=== PATIENT | female | born 1995 | race African-American/Black ===

== ENCOUNTER 2023-03-04 12:30 | Emergency (ER) | payer MEDICAID, SELFPAY ==
[2023-03-04 12:33] VITALS: BP 110/82; PULSE 75; RESP 18; TEMP 36.9; O2SAT 100; BMI 18.6
--- NOTE | 2023-03-04 13:21 | ECG_ITS ---
The [facility] Test Date: 2023-03-04 Pat Name: Heath Medellin Department: Room: - Gender: Female Spect[employer]er: : 1995 Requested By: Order Number: [id number] Reading MD: FIDEL ARROYO Measurements Intervals [place] Rate: 72 P: 69 MT: 172 QRS: 83 QRSD: 92 T: 71 QT: 398 QTc: 422 Interpretive Statements 1100 Sinus rhythm 9110 normal ECG No previous ECG available for comparison Electronically Signed On 03-05-2023 7:16:55 EST by FIDEL ARROYO
[2023-03-04 14:27] LABS: Basophils Percent Auto 0.3 % (0.2-2.0); Eosinophils Absolute Auto 0.1 10^3/uL (0.0-0.7); Eosinophils Percent Auto 0.9 % (0.9-7.0); Hematocrit 35.1 % (36.0-48.0); Hemoglobin 10.9 g/dL (12.0-16.0); Immature Granulocytes Abs Auto 0.02 10^3/uL (0.00-0.03); Immature Granulocytes Pct Auto 0.3 % (0.0-0.5); Lymphocytes Absolute Auto 2.4 10^3/uL (1.2-3.8); Lymphocytes Percent Auto 35.9 % (20.5-60.0); Mean Corpuscular HGB Conc 31.1 g/dL (29.9-35.2); Mean Corpuscular Hemoglobin 28.1 pg (26.7-34.0); Mean Corpuscular Volume 90.5 fL (81.0-99.0); Mean Platelet Volume 9.4 fL (9.5-13.5); Monocytes Absolute Auto 0.6 10^3/uL (0.3-0.8); Monocytes Percent Auto 8.5 % (1.7-12.0); Neutrophils Absolute Auto 3.7 10^3/uL (1.4-6.5); Neutrophils Percent Auto 54.1 % (43.0-75.0); Platelet Count 388 10^3/uL (150-450); Red Blood Count 3.88 10^6/uL (4.20-5.40); Red Cell Distribution Width 16.5 % (11.0-15.0); White Blood Count 6.8 10^3/uL (4.0-11.0)
[2023-03-04 14:29] LABS: Alanine Aminotransferase 31 U/L (14-59); Albumin Globulin Ratio 0.7; Albumin Level 3.1 g/dL (3.4-5.0); Alkaline Phosphatase 52 U/L (46-116); Anion Gap 13.6; Aspartate Amino Transferase 18 U/L (15-37); BUN Creatinine Ratio 23.4; Bilirubin Total 0.1 mg/dL (0.2-1.0); Calcium 8.4 mg/dL (8.5-10.1); Carbon Dioxide 25.1 mmol/L (21.0-32.0); Chloride 103 mmol/L (98-107); Estimated GFR (African America >60 (>=60); Estimated GFR (Non-African Ame >60 (>=60); Globulin 4.3 g/dL; Glucose 80 mg/dL (74-106); Potassium 3.7 mmol/L (3.5-5.1); Sodium 138 mmol/L (136-145); Total Protein 7.4 g/dL (6.4-8.2)
[2023-03-04 14:35] LABS: SARS-CoV-2 Ag NEGATIVE (NEGATIVE)
[2023-03-04 14:48] LABS: HCG Quantitative 16634 mIU/mL
--- NOTE | 2023-03-04 15:38 | ED.NAVMDI1 ---
HPI - Nausea/Vomiting/Diarrhea General Chief complaint: Nausea/Vomiting/Diarrhea Stated complaint: ADOMINAL PAIN Time Seen by Provider: 03/04/23 13:21 Source: patient Mode of arrival: ambulance Limitations: no limitations History of Present Illness HPI Narrative: 28-year-old female presents for nausea and vomiting. LMP was early January. She took a test at home and it was positive. No fever or hematemesis. No vaginal bleeding or lower abdominal pain. Related Data Previous Rx's Medication Instructions Recorded ondansetron 4 mg disintegrating 4 mg PO Q6H PRN nausea and 03/04/23 tablet vomiting #20 tabs Allergies Allergy/AdvReac Type Severity Reaction Status Date / Time No Known Drug Allergies Allergy Verified 03/04/23 12:33 Review of Systems ROS Narrative A ten point review of systems is negative except as noted above. Respiratory Reports: shortness of breath (shortness of breath for the past one or two years) PFSH PFSH Social History Smoking status: Current every day smoker Exam Narrative Exam Narrative: Nurses note and vital signs reviewed and patient is not hypoxic. General: The patient appears well and in no apparent distress. Patient is resting comfortably on cart. Skin: Warm, dry, no pallor noted. There is no rash noted. Head: Normocephalic, atraumatic Eye: Normal conjunctiva, no drainage Ears, Nose, Mouth, and Throat: oral mucosa is moist. Nares patent. Cardiovascular: Regular Rate and Rhythm Respiratory: Patient is in no distress, no accessory muscle use, lungs are clear to auscultation, no wheezing, rales or rhonchi Back: non-tender GI: soft and nontender Musculoskeletal: The patient has no evidence of calf tenderness, no pitting edema, symmetrical pulses noted bilaterally Neurological: A&O, normal speech Psychiatric: Cooperative Constitutional Vital Signs, click to edit/add: Last Vital Signs Temp 98.5 F 03/04/23 12:33 Pulse 75 03/04/23 12:33 Resp 18 03/04/23 12:33 BP 110/82 03/04/23 12:33 Pulse Ox 100 03/04/23 12:33 O2 Del Method Room Air 03/04/23 12:33 Course Vital Signs Vital signs: Vital Signs Temperature 98.5 F 03/04/23 12:33 Pulse Rate 75 03/04/23 12:33 Respiratory Rate 18 03/04/23 12:33 Blood Pressure 110/82 03/04/23 12:33 Pulse Oximetry 100 03/04/23 12:33 Oxygen Delivery Method Room Air 03/04/23 12:33 Temperature 98.5 F 03/04/23 12:33 Pulse Rate 75 03/04/23 12:33 Respiratory Rate 18 03/04/23 12:33 Blood Pressure 110/82 03/04/23 12:33 Pulse Oximetry 100 03/04/23 12:33 Oxygen Delivery Method Room Air 03/04/23 12:33 MDM - Nausea/Vomiting/Diarrhea MDM Narrative Medical decision making narrative: the patient's found to be . She has no vaginal bleeding. I've no clinical suspicion of ectopic and she is able to be discharged. Treatment diagnosis and follow-up were discussed with the patient. Differential Diagnosis Differential diagnosis: Likely gastroenteritis, dehydration and other () Lab Data Attestation: I reviewed the patient's lab results. Labs: Lab Results 03/04/23 03/04/23 03/04/23 Range/Units 13:42 13:43 15:26 WBC 6.8 (4.0-11.0) 10^3/uL RBC 3.88 L (4.20-5.40) 10^6/uL Hgb 10.9 L (12.0-16.0) g/dL Hct 35.1 L (36.0-48.0) % MCV 90.5 (81.0-99.0) fL MCH 28.1 (26.7-34.0) pg MCHC 31.1 (29.9-35.2) g/dL RDW 16.5 H (11.0-15.0) % Plt Count 388 (150-450) 10^3/uL MPV 9.4 L (9.5-13.5) fL Neut % (Auto) 54.1 (43.0-75.0) % Lymph % (Auto) 35.9 (20.5-60.0) % [place] % (Auto) 8.5 (1.7-12.0) % Eos % (Auto) 0.9 (0.9-7.0) % Baso % (Auto) 0.3 (0.2-2.0) % Neut # (Auto) 3.7 (1.4-6.5) 10^3/uL Lymph # (Auto) 2.4 (1.2-3.8) 10^3/uL [place] # (Auto) 0.6 (0.3-0.8) 10^3/uL Eos # (Auto) 0.1 (0.0-0.7) 10^3/uL Baso # (Auto) 0.0 (0.0-0.1) 10^3/uL Abs Immat Gran (auto) 0.02 (0.00-0.03) 10^3/uL Imm/Tot Granulo (auto) 0.3 (0.0-0.5) % Sodium 138 (136-145) mmol/L Potassium 3.7 (3.5-5.1) mmol/L Chloride 103 (98-107) mmol/L Carbon Dioxide 25.1 (21.0-32.0) mmol/L Anion Gap 13.6 BUN 15.0 (7.0-18.0) mg/dL Creatinine 0.64 (0.55-1.02) mg/dL Est GFR ( Amer) >60 (>=60) Est GFR (Non-Af Amer) >60 (>=60) BUN/Creatinine Ratio 23.4 Glucose 80 (74-106) mg/dL Calcium 8.4 L (8.5-10.1) mg/dL Total Bilirubin 0.1 L (0.2-1.0) mg/dL AST 18 (15-37) U/L ALT 31 (14-59) U/L Alkaline Phosphatase 52 (46-116) U/L Total Protein 7.4 (6.4-8.2) g/dL Albumin 3.1 L (3.4-5.0) g/dL Globulin 4.3 g/dL Albumin/Globulin Ratio 0.7 Lipase 45.0 (16.0-77.0) U/L HCG, Quant 12066 mIU/mL Urine Color Lt. yellow (YELLOW) Urine Clarity Clear (CLEAR) Urine pH 6.0 (5.0-9.0) Ur Specific [place] 1.010 (1.005-1.025) Urine Protein Negative (NEG/TRACE) mg/dL Urine Glucose (UA) Negative (NEGATIVE) mg/dL Urine Ketones Negative (NEGATIVE) mg/dL Urine Occult Blood Negative (NEGATIVE) Urine Nitrite Negative (NEGATIVE) Urine Bilirubin Negative (NEGATIVE) Urine Urobilinogen 0.2 (0.2-1.0) EU/dL Ur Leukocyte Esterase Negative (NEGATIVE) SARS-CoV-2 (PCR) Negative (NEGATIVE) Discharge Plan Discharge Chief Complaint: Nausea/Vomiting/Diarrhea Clinical Impression: Patient Disposition: Home, Self-Care Time of Disposition Decision: 16:18 Condition: Good Mode of Transportation: Private Vehicle Prescriptions / Home Meds: New ondansetron 4 mg tablet,disintegrating 4 mg PO Q6H PRN (Reason: nausea and vomiting) Qty: 20 0RF Instructions: (ED) Additional Instructions: Follow-up with nuclear reactor operator of your choice Stand Alone Forms: Portal Instructions Referrals: Physician,Non-Staff, MD [Primary Care Provider] - 1 week
[2023-03-04 15:41] LABS: Bilirubin Urine NEGATIVE (NEGATIVE); Blood Urine NEGATIVE (NEGATIVE); Clarity Urine CLEAR (CLEAR); Color Urine LT. YELLOW (YELLOW); Glucose Urine UA NEGATIVE (NEGATIVE); Ketones Urine NEGATIVE (NEGATIVE); Leukocyte Esterase Urine NEGATIVE (NEGATIVE); Nitrite Urine NEGATIVE (NEGATIVE); Protein Urine NEGATIVE (NEG/TRACE); Urobilinogen Urine 0.2 EU/dL (0.2-1.0)
[2023-03-04] MEDS: 0.9 % SODIUM CHLORIDE 1,000 ML 1000 ML IV (15:43)
[2023-03-04] MEDS: ONDANSETRON PF 4 MG/2 ML VIAL IV (15:43)
[2023-03-04 15:44] LABS: Urine Microscopic Indicated NO
[2023-03-05 11:28] LABS: SARS-CoV-2 NAA NOT DETECTED (NOT DETECTE)
== END 2023-03-04 16:53 | disposition home or self-care (01) ==
PROVIDERS: Physician Assistant; Emergency Provider Emergency Medicine
DX: O26.891 Other specified pregnancy related conditions, first trimester (principal); R11.2 Nausea with vomiting, unspecified; O99.331 Smoking (tobacco) complicating pregnancy, first trimester; F17.210 Nicotine dependence, cigarettes, uncomplicated; Z3A.01 Less than 8 weeks gestation of pregnancy; Z20.822 Contact with and (suspected) exposure to COVID-19
CPT/HCPCS: 36415; 80053; 81003; 83690; 84702; 85025; 87635; 87811; 93005; 96374; 99285

== ENCOUNTER 2023-06-19 13:12 | Outpatient (OUT) | payer MEDICAID, SELFPAY ==
--- NOTE | 2023-06-19 13:16 | US_ITS ---
The [address] [address] Patient Name: CARLOS MANUEL ARIZA MRN: [id number] date: 1995 Sex: F Assigned Patient Location: [facility] Current Patient Location: [facility] Accession/Order Number: [id number] Exam Date: 06/19/2023 13:18 Report Date: 06/19/2023 14:05 At the request of: IERNA NOEL Procedure: US OB >= 14 weeks Fetus EXAMINATION: US OB >= 14 weeks Fetus HISTORY: Missed menses COMPARISON: No relevant comparison available. FINDINGS: Heart Rate: 149.0 bpm Number: 1.0 Position: BREECH Amniotic Fluid Volume: Subjectively normal BIOMETRY: BPD: 4.9 cm cm; 20 weeks 6 days HC: 18.9 cmcm; 21 weeks 1 days AC: 15.0 cm cm; 20 weeks 2 days FL: 3.5 cm cm; 21 weeks 0 days EFW: 367.6 grams; 21% FL/AC: 23.2 FL/BPD: 70.7 HC/AC: 1.3 GESTATIONAL AGE: Age by EDC: 20 weeks 1 day SVEN by EDC: 10/29/2023 Age by US: 20 weeks 6 days SVEN by US: 10/31/2023 US/US OB >= 14 weeks Fetus IMPRESSION: 1. Single live intrauterine 20 weeks 6 days by today's ultrasound. 2. Anatomic evaluation was not performed on today's dating ultrasound study. Electronically authenticated by: AGUSTO PENA Date: 06/19/2023 14:05
--- OUTSIDE RECORDS SUMMARY | 2023-06-19 13:32 | XMS_ITS | CCD ---
Author Name Unknown Address [address] [place] [address] Organization [facility] Care Team Providers Care Superintendent Production Name Role Phone Unavailable, Family Physician Unavailable Un available Unavailable, Family Physician Unavailable Un available [place], [place] Unavailable Unavaila светлана MARCOS, DR OSBORN Admitting Unavailable SADIE, DR OSBORN Attending Unavailable KEYONNA, DR GONZALEZ Consulting Unavailable REQUEST, NONE LISTED Primary Care Unavaila светлана MARCOS, DR OSBORN Procedure Practitioner Unavailab jazmín MARCOS, DR OSBORN Consulting Unavailable REQUEST, NONE LISTED Primary Care Unavaila светлана BLAKE, DR JACK Gregg Admitting Unavailabl matthew BLAKE, DR JACK Gregg Attending Unavailabl e YUMIKO RASHID Consulting Unavailable No Pcp, No Pcp Primary Care Provider Unavailabl e Problems Active Problems Problem Classification Problem Date Documented Date Episodic/Chronic Genitourinary symptoms and ill-defined conditions (1 source) Personal history of urinary (tract) infections; Translations: [PERS HX URINARY TRACT INFECTIONS] Onset: 04-19-2022 Episodic Other aftercare (1 source) Other technical services specialist (current) drug therapy; 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] Onset: 04-22-2022 Episodic Other complications of ; puerperium affecting management of mother (1 source) Urinary tract infection following delivery, unspecified; Translations: [UTI FOLLOWING DELIVERY UNSPECIFIED] Onset: 04-22-2022 Episodic Other complications of ; puerperium affecting management of mother (1 source) Other infections with a predominantly sexual mode of transmission complicating the puerperium; Translations: [OTH INF SEXL TRNSMS COMP PUERPERIUM] Onset: 04-22-2022 Episodic Other complications of ; puerperium affecting management of mother (1 source) Smoking (tobacco) complicating childbirth; Translations: [SMOKING TOBACCO COMP CHILDBIRTH] Onset: 04-19-2022 Episodic Other complications of (2 sources) Smoking (tobacco) complicating , third trimester; Translations: [SMOKING TOBACCO COMP PREG 3RD TRI] Onset: 03-28-2022 Episodic Other female genital disorders (3 sources) Other specified noninflammatory disorders of vagina; Translations: [OTH SPEC NONINFLAMMATORY D/O VAGINA] Onset: 04-18-2022 Episodic Other infections; including parasitic (1 source) Trichomonal vulvovaginitis; Translations: [TRICHOMONAL VULVOVAGINITIS] Onset: 04-22-2022 Episodic Other and delivery including normal (1 source) Single live ; Translations: [SINGLE LIVE ] Onset: 04-19-2022 Episodic Residual codes; unclassified (1 source) 37 weeks gestation of ; Translations: [37 WEEKS GESTATION OF ] Onset: 04-19-2022 Episodic Substance-related disorders (1 source) Nicotine dependence, cigarettes, uncomplicated; Translations: [NICOTINE DEPEND CIGARETTES UNCOMP] Onset: 04-19-2022 Chronic Substance-related disorders (2 sources) Drug use complicating childbirth; Translations: [Cocaine use, unspecified, uncomplicated] Onset: 04-19-2022 Episodic Urinary tract infections (1 source) Urinary tract infection, site not specified; Translations: [UTI SITE NOT SPECIFIED] Onset: 04-22-2022 Episodic Past or Other Problems Problem Classification Problem Date Documented Da te Episodic/Chronic Viral infection (1 source) Herpes simplex; Translations: [Herpesviral infection, unspecified] Onset: 11-21-2016 11-21-2016 Episodic Results Test Name Value Interpretation Reference Range Facility CHLAMYDIA/GONOCOCCUS AMY (SW AB/URINE/PAPon 04-21-2022 Chlamydia trachomatis, AMY Negative Normal Negative [facility] Comment on above: Performed By: #### C T/NGNA #### [facility] [address] [place] [address] Dr. Bessie Pelaez Neisseria gonorrhoeae, AMY Negative Normal Negative [facility] Comment on above: Performed By: #### C T/NGNA #### [facility] [address] [place] [address] Dr. Bessie Pelaez CBC AUTO DIFFon 04-18-2022 BASO # 0.0 103/ul Normal 0.0-0.1 [facility] Comment on above: Performed By: #### H GBCAS #### [facility] [address] [address] [address] Bessie Pelaez Basophils/100 WBC (Bld) 0.3 % Normal 0.2-2.0 [facility] Comment on above: Performed By: #### H GBCAS #### [facility] [address] [address] [address] Bessie Pelaez EO # 0.1 103/ul Normal 0.0-0.7 [facility] Comment on above: Performed By: #### H GBCAS #### [facility] [address] [place] [address] Dr. Bessie Pelaez Eosinophils/100 WBC (Bld) 1.9 % Normal 0.9-7.0 [facility] Comment on above: Performed By: #### H GBCAS #### [facility] [address] [place] [address] Dr. Bessie Pelaez Erythrocyte distribution width (RBC) [Ratio] 17.2 % Critically high 11.0-15.0 [facility] Comment on above: Performed By: #### H GBCAS #### [facility] [address] [place] [address] Dr. Bessie Pelaez Hematocrit (Bld) [Volume fraction] 32.7 % Critically low 36.0-48.0 [facility] Comment on above: Performed By: #### H GBCAS #### [facility] [address] [place] [address] Dr. Bessie Pelaez Hemoglobin (Bld) [Mass/Vol] 9.5 g/dL Critically low 12.0-16.0 [facility] Comment on above: Performed By: #### H GBCAS #### [facility] [address] [place] [address] Dr. Bessie Pelaez IG # 0.02 10e3/ul Normal 0.00-0.03 [facility] Comment on above: Performed By: #### H GBCAS #### [facility] [address] [address] [address] Bessie Pelaez IG % 0.3 % Normal 0.0-0.5 [facility] Comment on above: Performed By: #### H GBCAS #### [facility] [address] [address] [address] Bessie Pelaez LYMPH # 3.0 103/ul Normal 1.2-3.8 [facility] Comment on above: Performed By: #### H GBCAS #### [facility] [address] [address] [address] Bessie Pelaez Lymphocytes/100 WBC (Bld) 50.8 % Normal 20.5-60.0 [facility] Comment on above: Performed By: #### H GBCAS #### [facility] [address] [address] [address] Bessie Pelaez MANUAL DIFF REQ NO Normal [facility] Comment on above: Performed By: #### H GBCAS #### [facility] [address] [address] [address] Bessie Pelaez MCH (RBC) [Entitic mass] 27.5 pg Normal 26.7-34.0 [facility] Comment on above: Performed By: #### H GBCAS #### [facility] [address] [address] [address] Bessie Pelaez MCHC (RBC) [Mass/Vol] 29.1 g/dL Critically low 29.9-35.2 [facility] Comment on above: Performed By: #### H GBCAS #### [facility] [address] [address] [address] Bessie Pelaez MCV (RBC) [Entitic vol] 94.8 fL Normal 81.0-99.0 [facility] Comment on above: Performed By: #### H GBCAS #### [facility] [address] [address] [address] Bessie Pelaez MONO # 0.6 103/ul Normal 0.3-0.8 [facility] Comment on above: Performed By: #### H GBCAS #### [facility] [address] [address] [address] Bessie Pelaez Monocytes/100 WBC (Bld) 11.0 % Normal 1.7-12.0 [facility] Comment on above: Performed By: #### H GBCAS #### [facility] [address] [address] [address] Bessie Pelaez NEUT # 2.1 103/ul Normal 1.4-6.5 [facility] Comment on above: Performed By: #### H GBCAS #### [facility] [address] [address] [address] Bessie Pelaez Neutrophils/100 WBC (Bld) 35.7 % Critically low 43.0-75.0 [facility] Comment on above: Performed By: #### H GBCAS #### [facility] [address] [place] [address] Dr. Bessie Pelaez Platelet mean volume (Bld) [Entitic vol] 9.9 fL Normal 9.5-13.5 [facility] Comment on above: Performed By: #### H GBCAS #### [facility] [address] [address] [address] Bessie Pelaez PLT 438 103/ul Normal 150-450 [facility] Comment on above: Performed By: #### H GBCAS #### [facility] [address] [place] [address] Dr. Bessie Pelaez RBC 3.45 106/ul Critically low 4.20-5.40 [facility] Comment on above: Performed By: #### H GBCAS #### [facility] [address] [address] [address] Bessie Pelaez WBC 5.8 103/ul Normal 4.0-11.0 [facility] Comment on above: Performed By: #### H GBCAS #### [facility] [address] [place] [address] Dr. Bessie Pelaez CULTURE URINEon 04-18-2022 CULTURE URINE Culture Observations: NO GROWTH. Normal [facility] Comment on above: Performed By: #### H GBCAS #### [facility] [address] [place] [address] Dr. Bessie Pelaez ER URINE PROFILEon 3 Bilirubin Ql (U) Negative Normal NEGATIVE [facility] Comment on above: Performed By: #### Matthew SCHAFFER UMICRO #### [facility] [address] [place] [address] Dr. Bessie Pelaez Clarity (U) CLEAR Normal CLEAR [facility] Comment on above: Performed By: #### Matthew SCHAFFER UMICRO #### [facility] [address] [place] [address] Dr. Bessie Pelaez Color (U) LT. YELLOW Normal YELLOW [facility] Comment on above: Performed By: #### LINDA MCGEEICRO #### [facility] [address] [place] [address] Dr. Bessie RODRIGUEZ A micrscopic examination will be performed if indicated. Normal [facility] Comment on above: Performed By: #### LINDA MCGEEICRO #### [facility] [address] [place] [address] Dr. Bessie Pelaez Glucose Ql (U) Negative Normal NEGATIVE [facility] Comment on above: Performed By: #### LINDA MCGEEICRO #### [facility] [address] [place] [address] Dr. Bessie Pelaez Hemoglobin Ql (U) Negative Normal NEGATIVE [facility] Comment on above: Performed By: #### LINDA MCGEEICRO #### [facility] [address] [place] [address] Dr. Bessie Pelaez Ketones Ql (U) TRACE Abnormal NEGATIVE [facility] Comment on above: Performed By: #### LINDA MCGEEICRO #### [facility] [address] [place] [address] Dr. Bessie Pelaez LEUKOCYTES SMALL Abnormal NEGATIVE [facility] Comment on above: Performed By: #### Matthew SCHAFFER UMICRO #### [facility] [address] [place] [address] Dr. Bessie Pelaez Nitrite Ql (U) Negative Normal NEGATIVE [facility] Comment on above: Performed By: #### Matthew SCHAFFER, UMICRO #### [facility] [address] [place] [address] Dr. Bessie Pelaez pH (U) 6.5 [pH] Normal 5-9 [facility] Comment on above: Performed By: #### Matthew SCHAFFER, UMICRO #### [facility] [address] [place] [address] Dr. Bessie Pelaez SPEC GRAVITY 1.015 Normal 1.005-<=1.025 [facility] Comment on above: Performed By: #### Matthew SCHAFFER, UMICRO #### [facility] [address] [place] [address] Dr. Bessie Pelaez UA PROTEIN Negative Normal NEGATIVE/ TRACE [facility] Comment on above: Performed By: #### Matthew SCHAFFER, UMICRO #### [facility] [address] [place] [address] Dr. Bessie Pelaez UR MICRO IND INDICATED Normal [facility] Comment on above: Performed By: #### Matthew SCHAFFER, UMICRO #### [facility] [address] [place] [address] Dr. Bessie Pelaez Urobilinogen Qn (U) 1.0 {Kristine'U}/dL Normal 0.2 - 1. 0 [facility] Comment on above: Performed By: #### Matthew SCHAFFER, UMICRO #### [facility] [address] [place] [address] Dr. Bessie Pelaez URINE MICROSCOPIC ONLYon BACTERIA TRACE Abnormal NONE SEEN [facility] Comment on above: Performed By: #### Matthew SCHAFFER, UMICRO #### [facility] [address] [place] [address] Dr. Bessie Pelaez Bacteria identified Cx Nom (U) INDICATED Normal [facility] Comment on above: Performed By: #### Matthew SCHAFFER, UMICRO #### [facility] [address] [place] [address] Dr. Bessie Pelaez CAST NONE SEEN Normal NONE SEEN [facility] Comment on above: Performed By: #### E RUR, UMICRO #### [facility] [address] [place] [address] Dr. Bessie Pelaez Crystals LM Nom (Urine sed) NONE SEEN Normal NONE SEEN [facility] Comment on above: Performed By: #### Matthew SCHAFFER UMICRO #### [facility] [address] [place] [address] Dr. Bessie Pelaez Epithelial cells LM Ql (Urine sed) RARE Normal NONE SEEN /RARE [facility] Comment on above: Performed By: #### Matthew SCHAFFER UMICRO #### [facility] [address] [place] [address] Dr. Bessie Pelaez MUCOUS NONE SEEN Normal NONE SEEN [facility] Comment on above: Performed By: #### Matthew SCHAFFER ICRO #### [facility] [address] [place] [address] Dr. Bessie Pelaez RBC 0-2 Normal 0-2 [facility] Comment on above: Performed By: #### Matthew SCHAFFER ICRO #### [facility] [address] [place] [address] Dr. Bessie Pelaez TRICH SEEN Abnormal NONE SEEN [facility] Comment on above: Performed By: #### Matthew SCHAFFER ICRO #### [facility] [address] [place] [address] Dr. Bessie Pelaez WBC 2-5 Abnormal NONE SEEN [facility] Comment on above: Performed By: #### Matthew SCHAFFER ICRO #### [facility] [address] [place] [address] Dr. Bessie Pelaez WET PREPon 04-18-2022 CLUE CELLS NONE SEEN Normal NONE SEEN [facility] Comment on above: Performed By: #### W P #### [facility] [address] [place] [address] Dr. Bessie Pelaez FUNGAL ELEMENTS NONE SEEN Normal NONE SEEN [facility] Comment on above: Performed By: #### W P #### [facility] [address] [place] [address] Dr. Bessie Pelaez RBC -WET PREP RARE Abnormal NONE SEEN [facility] Comment on above: Performed By: #### W P #### [facility] [address] [place] [address] Dr. Bessie Pelaez TRICHOMONAS SEEN Abnormal NONE SEEN [facility] Comment on above: Performed By: #### W P #### [facility] [address] [place] [address] Dr. Bessie Pelaez WBC- WET PREP MODERATE Abnormal NONE SEEN [facility] Comment on above: Performed By: #### W P #### [facility] [address] [place] [address] Dr. Bessie Pelaez WET PREP BACTERIA FEW Abnormal NONE SEEN [facility] Comment on above: Performed By: #### W P #### [facility] [address] [place] [address] Dr. Bessie Pelaez COCAINE METABOLITE CONFIRMAT ION, URINEon 04-06-2022 BENZOYLECGNONINE GCMS 7950 ng/mL Normal Djkshj=892 [facility] Comment on above: Performed By: #### H GBCAS #### [facility] [address] [place] [address] Dr. Bessie Pelaez COCAINE METAB Positive Abnormal [facility] Comment on above: Performed By: #### H GBCAS #### [facility] [address] [place] [address] Dr. Bessie Pelaez CBC AUTO DIFFon 03-29-2022 BASO # 0.0 103/ul Normal 0.0-0.1 [facility] Comment on above: Performed By: #### H GBCAS #### [facility] [address] [place] [address] Dr. Bessie Pelaez Basophils/100 WBC (Bld) 0.3 % Normal 0.2-2.0 [facility] Comment on above: Performed By: #### H GBCAS #### [facility] [address] [place] [address] Dr. Bessie Pelaez EO # 0.1 103/ul Normal 0.0-0.7 [facility] Comment on above: Performed By: #### H GBCAS #### [facility] [address] [place] [address] Dr. Bessie Pelaez Eosinophils/100 WBC (Bld) 0.7 % Critically low 0.9-7.0 [facility] Comment on above: Performed By: #### H GBCAS #### [facility] [address] [address] [address] Bessie Pelaez Erythrocyte distribution width (RBC) [Ratio] 13.9 % Normal 11.0-15.0 [facility] Comment on above: Performed By: #### H GBCAS #### [facility] [address] [place] [address] Dr. Bessie Pelaez Hematocrit (Bld) [Volume fraction] 25.8 % Critically low 36.0-48.0 [facility] Comment on above: Performed By: #### H GBCAS #### [facility] [address] [place] [address] Dr. Bessie Pelaez Hemoglobin (Bld) [Mass/Vol] 8.6 g/dL Critically low 12.0-16.0 [facility] Comment on above: Performed By: #### H GBCAS #### [facility] [address] [place] [address] Dr. Bessie Pelaez IG # 0.14 10e3/ul Critically high 0.00-0.03 [facility] Comment on above: Performed By: #### H GBCAS #### [facility] [address] [place] [address] Dr. Bessie Pelaez IG % 1.3 % Critically high 0.0-0.5 [facility] Comment on above: Performed By: #### H GBCAS #### [facility] [address] [address] [address] Bessie Pelaez LYMPH # 3.2 103/ul Normal 1.2-3.8 [facility] Comment on above: Performed By: #### H GBCAS #### [facility] [address] [place] [address] Dr. Bessie Pelaez Lymphocytes/100 WBC (Bld) 28.4 % Normal 20.5-60.0 [facility] Comment on above: Performed By: #### H GBCAS #### [facility] [address] [address] [address] Bessie Pelaez MANUAL DIFF REQ NO Normal [facility] Comment on above: Performed By: #### H GBCAS #### [facility] [address] [place] [address] Dr. Bessie Pelaez MCH (RBC) [Entitic mass] 28.8 pg Normal 26.7-34.0 [facility] Comment on above: Performed By: #### H GBCAS #### [facility] [address] [place] [address] Dr. Bessie Pelaez MCHC (RBC) [Mass/Vol] 33.3 g/dL Normal 29.9-35.2 [facility] Comment on above: Performed By: #### H GBCAS #### [facility] [address] [place] [address] Dr. Bessie Pelaez MCV (RBC) [Entitic vol] 86.3 fL Normal 81.0-99.0 [facility] Comment on above: Performed By: #### H GBCAS #### [facility] [address] [place] [address] Dr. Bessie Pelaez MONO # 1.0 103/ul Critically high 0.3-0.8 [facility] Comment on above: Performed By: #### H GBCAS #### [facility] [address] [place] [address] Dr. Bessie Pelaez Monocytes/100 WBC (Bld) 8.6 % Normal 1.7-12.0 [facility] Comment on above: Performed By: #### H GBCAS #### [facility] [address] [place] [address] Dr. Bessie Pelaez NEUT # 6.8 103/ul Critically high 1.4-6.5 [facility] Comment on above: Performed By: #### H GBCAS #### [facility] [address] [place] [address] Dr. Bessie Pelaez Neutrophils/100 WBC (Bld) 60.7 % Normal 43.0-75.0 [facility] Comment on above: Performed By: #### H GBCAS #### [facility] [address] [address] [address] Bessie Pelaez Platelet mean volume (Bld) [Entitic vol] 10.2 fL Normal 9.5-13.5 [facility] Comment on above: Performed By: #### H GBCAS #### [facility] [address] [address] [address] Bessie Pelaez PLT 263 103/ul Normal 150-450 [facility] Comment on above: Performed By: #### H GBCAS #### [facility] [address] [address] [address] Bessie Pelaez RBC 2.99 106/ul Critically low 4.20-5.40 [facility] Comment on above: Performed By: #### H GBCAS #### [facility] [address] [place] [address] Dr. Bessie Pelaez WBC 11.2 103/ul Critically high 4.0-11.0 [facility] Comment on above: Performed By: #### H GBCAS #### [facility] [address] [place] [address] Dr. Bessie Pelaez HEMOGLOBINOPATHY FRACTIONATI ON CASCADE03-29-2022 HGB A 97.8 % Normal 96.4-98.8 [facility] Comment on above: Performed By: #### H GBCAS #### [facility] [address] [address] [address] Bessie Pelaez HGB A2 2.2 % Normal 1.8-3.2 [facility] Comment on above: Performed By: #### H GBCAS #### [facility] [address] [address] [address] Bessie Pelaez HGB F 0.0 % Normal 0.0-2.0 [facility] Comment on above: Performed By: #### H GBCAS #### [facility] [address] [address] [address] Bessie Pelaez HGB S 0.0 % Normal 0.0 [facility] Comment on above: Performed By: #### H GBCAS #### [facility] [address] [address] [address] Bessie Pelaez Interpretation: Comment Normal [facility] Comment on above: Result Comment: Norm al hemoglobin present; no hemoglobin variant or beta thalassemia identified. Note: Alpha thalassemia may not be detected by the Hgb Fractionation [place] panel. If alpha thalassemia is suspected, [facility] offers Alpha-Thalassemia DNA Analysis (#[id number]). Performed By: #### H GBCAS #### [facility] [address] [address] [address] Bessie Pelaez HEP B SURFACE ANTIGEN SCREEN on 03-29-2022 HBsAg Screen Negative Normal Negative [facility] Comment on above: Performed By: #### H GBCAS #### [facility] [address] [place] [address] Dr. Bessie Pelaez HEPATITIS C ANTIBODYon 03-29 Hep C Virus Ab <0.1 Normal 0.0-0.9 [facility] Comment on above: Result Comment: Nega tive: < 0.8 Indeterminate: 0.8 - 0.9 Positive: > 0.9 . HCV antibody alone does not differentiate between previous resolved infection and active infection. The CDC and current clinical guidelines recommend that a positive HCV antibody result be followed up with an HCV RNA test to support the diagnosis of acute HCV infection. [facility] offers Hepatitis C Virus (HCV) RNA, Diagnosis, AMY (983553) and Hepatitis C Virus (HCV) Antibody with reflex to Quantitative Real-time PCR ([id number]). Performed By: #### H CV #### [facility] [address] [place] [address] Dr. Bessie Pelaez HIV 1 AND 2 WITH REFLEXon HIV Screen 4th Generation wRfx Non-Reactive Normal Non Reactive [facility] Comment on above: Result Comment: HIV Negative HIV-1/HIV-2 antibodies and HIV-1 p24 antigen were NOT detected. There is no laboratory evidence of HIV infection. Performed By: #### H IV12 #### [facility] [address] [place] [address] Dr. Bessie Pelaez RPR QUANTon 03-29-2022 Rapid Plasma Reagin, Quant Non-Reactive Normal NonRea<1:1 [facility] Comment on above: Result Comment: Plethor se Note: This test does not meet current guidelines for screening and diagnosis of syphilis. This test is intended for following treatment response in patients being treated for syphilis infection. To screen for syphilis infection, a reflex cascade that includes both RPR and a treponema-specific assay should be utilized, such as Treponema pallidum (Syphilis) Screening [place] (194739) or Rapid Plasma Reagin (RPR) Test With Reflex to Quantitative RPR and Confirmatory Treponema pallidum Antibodies ([id number]). Performed By: #### R PRQ #### [facility] [address] [place] [address] Dr. Bessie Pelaez RUBELLA AB IGGon 03-29-2022 Rubella Antibodies, IgG <0.90 Critically low Immune >0.99 [facility] Comment on above: Result Comment: Non- immune <0.90 Equivocal 0.90 - 0.99 Immune >0.99 Performed By: #### H GBCAS #### [facility] [address] [place] [address] Dr. Bessie Pelaez CBC AUTO DIFFon 03-28-2022 BASO # 0.0 103/ul Normal 0.0-0.1 [facility] Comment on above: Performed By: #### H GBCAS #### [facility] [address] [place] [address] Dr. Bessie Pelaez Basophils/100 WBC (Bld) 0.3 % Normal 0.2-2.0 [facility] Comment on above: Performed By: #### H GBCAS #### [facility] [address] [place] [address] Dr. Bessie Pelaez EO # 0.1 103/ul Normal 0.0-0.7 [facility] Comment on above: Performed By: #### H GBCAS #### [facility] [address] [place] [address] Dr. Bessie Pelaez Eosinophils/100 WBC (Bld) 0.7 % Critically low 0.9-7.0 [facility] Comment on above: Performed By: #### H GBCAS #### [facility] [address] [address] [address] Bessie Pelaez Erythrocyte distribution width (RBC) [Ratio] 14.3 % Normal 11.0-15.0 [facility] Comment on above: Performed By: #### H GBCAS #### [facility] [address] [place] [address] Dr. Bessie Pelaez Hematocrit (Bld) [Volume fraction] 30.0 % Critically low 36.0-48.0 [facility] Comment on above: Performed By: #### H GBCAS #### [facility] [address] [place] [address] Dr. Bessie Pelaez Hemoglobin (Bld) [Mass/Vol] 9.6 g/dL Critically low 12.0-16.0 [facility] Comment on above: Performed By: #### H GBCAS #### [facility] [address] [place] [address] Dr. Bessie Pelaez IG # 0.13 10e3/ul Critically high 0.00-0.03 [facility] Comment on above: Performed By: #### H GBCAS #### [facility] [address] [place] [address] Dr. Bessie Pelaez IG % 1.5 % Critically high 0.0-0.5 [facility] Comment on above: Performed By: #### H GBCAS #### [facility] [address] [place] [address] Dr. Bessie Pelaez LYMPH # 2.2 103/ul Normal 1.2-3.8 [facility] Comment on above: Performed By: #### H GBCAS #### [facility] [address] [place] [address] Dr. Bessie Pelaez Lymphocytes/100 WBC (Bld) 25.1 % Normal 20.5-60.0 [facility] Comment on above: Performed By: #### H GBCAS #### [facility] [address] [place] [address] Dr. Bessie Pelaez MANUAL DIFF REQ NO Normal [facility] Comment on above: Performed By: #### H GBCAS #### [facility] [address] [address] [address] Bessie Pelaez MCH (RBC) [Entitic mass] 28.5 pg Normal 26.7-34.0 [facility] Comment on above: Performed By: #### H GBCAS #### [facility] [address] [address] [address] Bessie Pelaez MCHC (RBC) [Mass/Vol] 32.0 g/dL Normal 29.9-35.2 [facility] Comment on above: Performed By: #### H GBCAS #### [facility] [address] [address] [address] Bessie Pelaez MCV (RBC) [Entitic vol] 89.0 fL Normal 81.0-99.0 [facility] Comment on above: Performed By: #### H GBCAS #### [facility] [address] [place] [address] Dr. Bessie Pelaez MONO # 0.8 103/ul Normal 0.3-0.8 [facility] Comment on above: Performed By: #### H GBCAS #### [facility] [address] [place] [address] Dr. Bessie Pelaez Monocytes/100 WBC (Bld) 9.3 % Normal 1.7-12.0 [facility] Comment on above: Performed By: #### H GBCAS #### [facility] [address] [place] [address] Dr. Bessie Pelaez NEUT # 5.4 103/ul Normal 1.4-6.5 [facility] Comment on above: Performed By: #### H GBCAS #### [facility] [address] [address] [address] Bessie Pelaez Neutrophils/100 WBC (Bld) 63.1 % Normal 43.0-75.0 [facility] Comment on above: Performed By: #### H GBCAS #### [facility] [address] [place] [address] Dr. Bessie Pelaez Platelet mean volume (Bld) [Entitic vol] 10.5 fL Normal 9.5-13.5 [facility] Comment on above: Performed By: #### H GBCAS #### [facility] [address] [address] [address] Bessie Pelaez PLT 281 103/ul Normal 150-450 [facility] Comment on above: Performed By: #### H GBCAS #### [facility] [address] [address] [address] Bessie Pelaez RBC 3.37 106/ul Critically low 4.20-5.40 [facility] Comment on above: Performed By: #### H GBCAS #### [facility] [address] [address] [address] Bessie Pelaez WBC 8.6 103/ul Normal 4.0-11.0 [facility] Comment on above: Performed By: #### H GBCAS #### [facility] [address] [place] [address] Dr. Bessie Pelaez Covid-19 PCR (CVDTB)on 03-08 SARS-CoV-2 (COVID-19) RNA AMY+probe Ql (Unsp spec) Not detected Normal NOT DETECTED [facility] Comment on above: Result Comment: When diagnostic testing is negative, the possibility of a false negative should be considered in the context of a patient's recent exposures and the presence of clinical signs and symptoms consistent with SARS-CoV-2. This test is not yet approved or cleared by the [place] FDA. When there are no FDA-approved or cleared tests available, and other criteria are met, FDA can make tests available under an emergency access mechanism called an Emergency Use Authorization (EUA). The EUA for this test is supported by the [employer] Operator of Health and Human Service's declaration that circumstances exist to justify the emergency use of in vitro diagnostics for the detection and/or diagnosis of the virus that causes COVID-19. This EUA will remain in effect for the duration of the COVID-19 declaration justifying emergency of IVDs, unless it is terminated or revoked by the FDA (after which the test may no longer be used). Performed By: #### C VDTBH #### [facility] [address] [address] [address] Bessie Pelaez DRUG SCREEN RAPID (URINE)on 03-28-2022 AMP Negative Normal NEGATIVE [facility] Comment on above: Performed By: #### D RUGRPD #### [facility] [address] [place] [address] Dr. Bessie Pelaez BAR Negative Normal NEGATIVE [facility] Comment on above: Performed By: #### D RUGRPD #### [facility] [address] [place] [address] Dr. Bessie Pelaez BUP Negative Normal NEGATIVE [facility] Comment on above: Performed By: #### D RUGRPD #### [facility] [address] [place] [address] Dr. Bessie Pelaez BZO Negative Normal NEGATIVE [facility] Comment on above: Performed By: #### D RUGRPD #### [facility] [address] [place] [address] Dr. Bessie Pelaez BECKI Positive Abnormal NEGATIVE [facility] Comment on above: Performed By: #### D RUGRPD #### [facility] [address] [place] [address] Dr. Bessie Pelaez CUT-OFFS SEE BELOW Normal [facility] Comment on above: Result Comment: AMP (Amphetamine): 500ng/mL, BAR (Barbituates): 200 ng/mL, BZO (Benzodiazepines): 150 ng/mL, BUP (Buprenorphine): 10 ng/mL, BECKI (Cocaine): 150 ng/mL, mAMP (Methamphetamine): 500 ng/mL, MTD (Methadone): 200 ng/mL, OPI (Opiates): 100 ng/mL, OXY (Oxycodone): 100 ng/mL, PCP (Phencyclidine): 25 ng/mL, PPX (Propoxyphene): 300 ng/mL, THC (Cannabinoids): 50 ng/mL, TCA (Trycyclic Antidepressants): 300 ng/mL Performed By: #### D RUGRPD #### [facility] [address] [place] [address] Dr. Bessie Pelaez DRUG CUT HEADER DRUG CLASS TEST SYSTEM CUT-OFF CONCENTRATIONS ARE FOLLOWS: Normal [facility] Comment on above: Performed By: #### D RUGRPD #### [facility] [address] [address] [address] Bessie Pelaez mAMP Negative Normal NEGATIVE [facility] Comment on above: Performed By: #### D RUGRPD #### [facility] [address] [address] [address] Bessie Pelaez MTD Negative Normal NEGATIVE [facility] Comment on above: Performed By: #### D RUGRPD #### [facility] [address] [address] [address] Bessie Pelaez OPI Negative Normal NEGATIVE [facility] Comment on above: Performed By: #### D RUGRPD #### [facility] [address] [address] [address] Bessie Pelaez OXY Negative Normal NEGATIVE [facility] Comment on above: Performed By: #### D RUGRPD #### [facility] [address] [place] [address] Dr. Bessie Pelaez PCP Negative Normal NEGATIVE [facility] Comment on above: Performed By: #### D RUGRPD #### [facility] [address] [address] [address] Bessie Pelaez PPX Negative Normal NEGATIVE [facility] Comment on above: Performed By: #### D RUGRPD #### [facility] [address] [place] [address] Dr. Bessie Pelaez TCA Negative Normal NEGATIVE [facility] Comment on above: Performed By: #### D RUGRPD #### [facility] [address] [address] [address] Bessie Pelaez THC Negative Normal NEGATIVE [facility] Comment on above: Performed By: #### D RUGRPD #### [facility] [address] [address] [address] Bessie Pelaez TYPE AND SCREENon 03-28-2022 TYPE AND SCREEN Negative Normal [facility] Comment on above: Performed By: #### H GBCAS #### [facility] [address] [address] [address] Bessie Pelaez UA COMPLETEon 10-08-2016 Bilirubin (total) Negative Normal NEGATIVE [facility] Comment on above: Order Comment: CONSE RVATION Performed By: #### L 600.39883, L600.62019 ####Test performed at: [place] [id number] BLOOD Negative Normal NEGATIVE [facility] Comment on above: Order Comment: CONSE RVATION Result Comment: ASCO RBIC ACID IS PRESENT AND MAY INTERFERE WITH THE URINEBLOOD RESULT. Performed By: #### L 600.52757, L600.98982 ####Test performed at: [place] [address] Glucose mass conc 50 mg/dL Invalid Interpretation Code NEGATIVE [facility] Comment on above: Order Comment: CONSE RVATION Performed By: #### L 600.65157, L600.38599 ####Test performed at: [place] [address] KETONE 20 mg/dL Invalid Interpretation Code NEGATIVE [facility] Comment on above: Order Comment: CONSE RVATION Performed By: #### L 600.74443, L600.93462 ####Test performed at: [place] [address] LEUK ESTERASE Negative Normal NEGATIVE [facility] Comment on above: Order Comment: CONSE RVATION Performed By: #### L 600.89307, L600.99142 ####Test performed at: [place] [id number] Protein Negative Normal NEGATIVE [facility] Comment on above: Order Comment: CONSE RVATION Performed By: #### L 600.00723, L600.60752 ####Test performed at: [place] [id number] SPEC GRAV 1.020 Normal 1.005-1.030 [facility] Comment on above: Order Comment: CONSE RVATION Performed By: #### L 600.83128, L600.13331 ####Test performed at: [address] [address] UA ASC ACID 40 mg/dL Normal [facility] Comment on above: Order Comment: CONSE RVATION Performed By: #### L 600.11423, L600.76040 ####Test performed at: [address] [address] UA PH 6.0 Normal 5.0-8.0 [facility] Comment on above: Order Comment: CONSE RVATION Performed By: #### L 600.01108, L600.05990 ####Test performed at: [address] [address] Urine, appearance CLEAR Normal CLEAR [facility] Comment on above: Order Comment: CONSE RVATION Performed By: #### L 600.27718, L600.66481 ####Test performed at: [place] [id number] Urine, color YELLOW Normal YELLOW [facility] Comment on above: Order Comment: CONSE RVATION Performed By: #### L 600.92327, L600.46037 ####Test performed at: [address] [address] Urine, nitrite presence Negative Normal NEGATIVE [facility] Comment on above: Order Comment: CONSE RVATION Performed By: #### L 600.22827, L600.67461 ####Test performed at: [address] [address] UROBIL NORMAL Normal NORMAL [facility] Comment on above: Order Comment: CONSE RVATION Performed By: #### L 600.05852, L600.77721 ####Test performed at: [address] [address] UR HCG QUALon 10-08-2016 UR HCG QUAL Positive Normal [facility] Comment on above: Order Comment: CONSE RVATION Result Comment: Resu lts called to Yajaira De La Fuente 10/07/16 2257 by GLBJMG. Performed By: #### L 600.66143, L600.80254 ####Test performed at: [address] [address] Encounters Encounter Date Encounter Type Care Provider Facility Start: 04-02-2023 Telephone encounter Yi Call [facility] [place] Start: 04-18-2022 End: 04-18-[address] NONE LISTED REQUEST Facility:[facility] Start: 03-28-2022 End: 03-30-2022 Evaluation and management of inpatient DR IRENA MACROS Facility:[facility] Start: 10-08-2016 End: 10-08-2016 Emergency department patient visit Family Physician Unavailable Facility[facility] Procedures Date Procedure Procedure Detail Performing Clinician Start: 03-28-2022 Delivery of Products of Conception, External Approach DR IRENA MARCOS Start: 11-28-2021 Microscopic observat ion [Identifier] in Cervix by Cyto stain Yi Medina LPN Plan of Treatment Date Care Activity Detail Author Start: 05-11-2027 DTaP,Tdap and Td Vaccines (7 - Td or Tdap) DTaP,Tdap and Td Vaccines (7 - Td or Tdap) [facility] Start: 11-28-2024 Screening for malign ant neoplasm of cervix Pap Smear [facility] Start: 02-10-2024 Tobacco Screening Tobacco Screening [facility] Start: 12-25-2023 Adult BMI Screening Adult BMI Screen ing [facility] Start: 12-06-2022 Influenza vaccination Influenza Vacc ine [facility] Start: 2007 Depression Screening Depression Scre ening [facility] Start: 1995 Tobacco Counseling Tobacco Counselin g [facility] Immunizations Immunization Date Immunization Notes Care Provider Fa cility 05-11-2017 tetanus toxoid, redu omid diphtheria toxoid, and acellular pertussis vaccine, adsorbed Yi Medina LPN [facility] Payers Date Payer Category Payer Medicaid [employer] [facility] MEDICA[facility] [id number] 2022-Present [phone] [place], [place] [address] [id number] 1995 Unknown [id number] 1995 Unknown [id number] 1959 Medicaid [id number] Unknown [id number] Social History Date Type Detail Facility Start: 09-22-2019 [facility] smoker [facility] End: 11-05-2016 History of tobacco use Cigarette Smoker [facility] Start: 09-22-2019 End: 05-18-2020 Cigarettes smoked current (pack per day) - Reported 0.3 [facility] Start: 09-22-2019 Tobacco use and exposure Smoke less tobacco non-user [facility] Start: 02-09-2023 Alcohol intake Ex-drinker (finding) [facility] Start: 05-18-2020 End: 02-09-2023 Tobacco use panel [facility] Housing Instability Unknown [facility] Start: 11-21-2016 Alcohol Comment wine [facility] Start: 1995 Sex Assigned At Not on file [facility] Note 04-02-2023 Telephone Encounter - Yi Medina LPN - 04/02/2023 2:09 PM EST Note Date & Type Note Facility 04-02-2023 Miscellaneous Notes Formattin g of this note might be different from the original. Called Pt for OBI. Pt has [employer] medicaid and I advised Pt that we don't except that insurance and she would need to switch to a different HMO like [facility], [place] or [place]. Pt states she is not wanting to deal with all that and is going to call Dr Marcos's office for an appt. documented in this encounter [facility] Telephone encounter Note 04-02-2023 Telephone Encounter - Yi Medina LPN - 04/02/2023 2:09 PM EST Note Date & Type Note Facility 04-02-2023 Telephone encount er Note Called Pt for OBI. Pt has [employer] medicaid and I advised Pt that we don't except that insurance and she would need to switch to a different HMO like [facility], [place] or [place]. Pt states she is not wanting to deal with all that and is going to call Dr Marcos's office for an appt. [employer] Instructions Note Date & Type Note Facility Instructions Not on filedocumented in this en counter [facility] Summary Purpose Family History No Family History Records FoundNo Family History Records Found Advance Directives No Advanced Directives Records FoundNo Advanced Directives Records Found Additional Source Comments INFORMATION SOURCE (unrecogn ized section and content) DATE CREATED AUTHOR 10/01/2017 [facility] DATE CREATED AUTHOR AUTHOR'S ORGANIZ ATION 04/22/2022 [facility] Care Teams (unrecognized sec tion and content) Superintendent Production Relationship Specialty Start Date End Date No Pcp, [place] [address] PCP - General Family Medicine 02/09/23 FOR RECORDS PERTAINING TO PATIENTS WHO ARE OR HAVE BEEN ENROLLED IN A CHEMICAL DEPENDENCY/SUBSTANCEABUSE PROGRAM, SOME INFORMATION MAY BE OMITTED. This clinical summary was aggregated from multiple sources. Caution should be exercised in using it in the provision of clinical care. This summary normalizes information from multiple sources, and as a consequence, information in this document may materially change the coding, format and clinical context of patient data. In addition, data may be omitted in some cases. CLINICAL DECISIONS SHOULD BE BASED ON THE PRIMARY CLINICAL RECORDS. [employer] [facility]. provides no warranty or guarantee of the accuracy or completeness of information in this document.
== END 2023-06-19 13:13 | disposition home or self-care (01) ==
LOC: NOMS 13:12
PROVIDERS: Visit Provider Obstetrics & Gynecology
DX: Z34.92 Encounter for supervision of normal pregnancy, unspecified, second trimester (principal); N92.6 Irregular menstruation, unspecified; Z3A.20 20 weeks gestation of pregnancy
CPT/HCPCS: 76815